=== PATIENT | female | born 1985 | race Caucasian/White ===

== ENCOUNTER 2017-08-14 23:30 | Emergency (ER) | payer OTHER ==
[2013-08-16 09:55] VITALS: Wt 100.7 kg
[~2017-08-14 23:30] MED LIST: ACE3 PO; ALP5 PO; CLON-388 PO; DICY20TA70 PO; DIPH-1 PO; ESCI20TA38 PO; FAMO20TA28 PO; FLUT16SP20 NS; GOLYTE PO; IBU800 PO; IRON1TAB55 PO; Ibuprofen PO; KET10 PO; LOR10 PO; MON10 PO; NAPR500T75 PO; NORE0.3517 PO; OXYC1TAB54 PO; PER PO; PRO25 PO; TRAM-627 PO; TRAM100T22 PO
--- NOTE | 2017-08-14 23:37 | ER Report ---
History and Physical Time Seen By MD: 23:36 HPI/ROS CHIEF COMPLAINT: Cat bite, right index finger HISTORY OF PRESENT ILLNESS: 32-year-old female presents ambulatory the ER complaining of 9/10 throbbing pain in her right index finger. Patient used to live trapped to catch a feral cat in her garage. She was using a leather glove trying to extricate From the cage and release it, when it bit into her finger through the glove. Patient has puncture wounds on both sides of her right index finger. Patient reports her last tetanus shot was 2011. Patient's concerned about rabies exposure. REVIEW OF SYSTEMS: Respiratory: No cough, no dyspnea. Cardiovascular: No chest pain, no palpitations. Gastrointestinal: No vomiting, no abdominal pain. Musculoskeletal: As above Allergies: Coded Allergies: grass pollen-sweet vernal, standardized (Verified Allergy, Mild, STUFFY NOSE, 08/14/17) nut - unspecified (Verified Allergy, Unknown, 08/14/17) Uncoded Allergies: UNKNOWN ANTIBIOTICS X 2 (Allergy, Intermediate, 1 CAUSED N/V. 1 CAUSED HIVES, 06/18/09) MOLD (Allergy, Mild, STUFFY NOSE, 08/29/11) Home Meds Active Scripts Hydrocodone Bit/Acetaminophen (NORCO 5-325 TABLET) 1 Each Tablet, 1 EACH PO Q4H Y for PAIN, #8 TAB Prov:REJI ANGEL DO 08/15/17 Amoxicillin/Pot Clav 875-125 Mg Tab (AUGMENTIN 875-125 TABLET) 1 Each Tablet, 1 TAB PO Q12H for infection, #14 TAB TAKE ONE TABLET BY MOUTH EVERY 12 HOURS Prov:REJI ANGEL DO 08/15/17 Dicyclomine Hcl (DICYCLOMINE HCL) 20 Mg Tablet, 1 TAB PO QID Y for CRAMPING, # 30 TAB 3 Refills Prov:UNIQUE TORRES MD 05/23/17 Diphenoxylate Hcl/Atropine (LOMOTIL TABLET) 1 Each Tablet, 1 TAB PO TID Y for DIARRHEA, #45 TAB 0 Refills Prov:UNIQUE TORRES MD 02/22/17 Reported Medications Hydroxyzine Hcl (HYDROXYZINE HCL) 25 Mg Tablet, 25 MG PO 08/14/17 Bupropion Hcl (WELLBUTRIN SR) 150 Mg Tablet.er, 150 MG PO QDAY, TAB 08/14/17 Famotidine (PEPCID) 20 Mg Tablet, 20 MG PO BID, #10 TAB 01/18/17 Clonazepam (CLONAZEPAM) 0.5 Mg Tab.rapdis, 0.5 MG PO QDAY Y for prn, #6 TAB 01/04/17 Escitalopram Oxalate (LEXAPRO) 20 Mg Tablet, 20 MG PO QDAY, TAB 01/04/17 Reviewed Nurses Notes: Yes Old Medical Records Reviewed: Yes Hx Smoking: Yes Smoking Status: Former Smoker Exposure to Second Hand Smoke?: No Hx Substance Use Disorder: No Hx Alcohol Use: No Constitutional Vital Sign - Last 24 Hours 08/14/17 08/14/17 08/15/17 08/15/17 23:36 23:45 00:00 00:15 Temp 98.2 Pulse 96 94 ??? 84 Resp 18 B/P (MAP) 146/87 129/77 (94) Pulse Ox 97 94 91 95 O2 Delivery Room Air 08/15/17 08/15/17 08/15/17 08/15/17 00:20 00:30 00:50 00:56 Pulse 87 86 80 B/P (MAP) 122/73 (89) Pulse Ox 99 94 08/15/17 01:01 Pulse 81 Pulse Ox 98 Physical Exam General appearance: Respiratory: Chest is non tender, lungs are clear to auscultation. Cardiac: Regular rate and rhythm Right index finger with puncture wounds bilaterally. There is significant soft tissue swelling and tenderness of the distal tuft. DIFFERENTIAL DIAGNOSIS: After history and physical exam differential diagnosis was considered for puncture wounds, animal bite, crush injury, osteomyelitis, joint penetration, Medical Decision Making EKG/Imaging Imaging X-ray: Right index finger, 3 views was obtained. I viewed the images myself on the PACS system. My interpretation of the images is: No fracture no dislocation , no bony injury. The radiologist interpretation had no clinically significant variation from this interpretation. ED Course/Re-evaluation ED Course Patient was admitted to an examination room. H&P was done. The differential diagnoses was considered. Patient with a cat bite. She'll be treated with Augmentin, ibuprofen and Severance for pain relief. Patient has been Detained at home. Animal control was contacted and will be checked for rabies. Poison control was contacted for consideration of whether to treat for rabies prophylactically. The animal picked up by [employer] tomorrow and taken to a filler shredder machine for evaluation of rabies. Patient reports the cat is been behaving normally, has no signs of aggressiveness. The cat is been around for several weeks. Lives in her garage. Patient be discharged on Augmentin and a limited supply of Severance for temporary pain relief. Patient's advised hot soaks and ibuprofen 600 mg 3 times a day. Decision to Disposition Date: Aug 15, 2017 Decision to Disposition Time: 00:22 Depart Departure Latest Vital Signs Vital Signs Date Time Temp Pulse Resp B/P (MAP) Pulse Ox O2 Delivery O2 Flow Rate FiO2 08/15/17 01:01 81 98 08/15/17 00:30 122/73 (89) 08/14/17 23:36 98.2 18 Room Air Impression: Primary Impression: Cat bite of index finger Condition: Improved Disposition: HOME OR SELF-CARE Referrals: ESTHER VO PA-C (PCP) New Scripts Hydrocodone Bit/Acetaminophen (NORCO 5-325 TABLET) 1 Each Tablet 1 EACH PO Q4H Y for PAIN, #8 TAB Prov: REJI ANGEL DO 08/15/17 Amoxicillin/Pot Clav 875-125 Mg Tab (AUGMENTIN 875-125 TABLET) 1 Each Tablet 1 TAB PO Q12H for infection, #14 TAB TAKE ONE TABLET BY MOUTH EVERY 12 HOURS Prov: REJI ANGEL DO 08/15/17 Patient Instructions: Animal Bite (ED) Additional Instructions: Take ibuprofen 200 mg 3-4 tablets 3 times a day with food Perform warm soaks of your index finger Follow-up with primary care if unimproved in 3-5 days. Problem Qualifiers Primary Impression: Cat bite of index finger Encounter type: initial encounter Qualified Codes: S61.258A - Open bite of other finger without damage to nail, initial encounter; W55.01XA - Bitten by cat , initial encounter REJI ANGEL DO Aug 14, 2017 23:37
[2017-08-14] MEDS ORDERED: AMOX/CLAV 875 MG TAB PO ONE (23:45)
[2017-08-14] MEDS ORDERED: APAP/HYDROCODONE 325/5 TAB PO ONE (23:45)
[2017-08-14] MEDS ORDERED: IBUPROFEN 600 MG TAB PO ONE (23:45)
[2017-08-14] MEDS ORDERED: BUPR-126 PO (23:46)
[2017-08-14] MEDS ORDERED: HYDR-4225 PO (23:46)
--- NOTE | 2017-08-15 00:24 | RADIOLOGY IMAGING REPORT ---
FACILITY: [facility] - [place] PATIENT NAME: Kelsey Mandujano : 1985 MR: [id number] V: [id number] EXAM DATE: ORDERING PHYSICIAN: REJI ANGEL TECHNOLOGIST: Location: [facility] - [place] Patient: Kelsey Mandujano : 1985 Visit/Account:[id number] Date of Sevice: 08/14/2017 INDICATION: Cat-bite. EXAM DATE: 08/14/2017 11:44 PM COMPARISON: None. FINDINGS: PA view of the right hand with oblique and lateral views of the index finger.. Mineralization is norm al. No acute alignment abnormality or fracture. Soft tissues are unremarkable. IMPRESSION: Normal right index finger. Report Dictated By: Wai Brown MD at 08/15/2017 12:19 AM Report E-Signed By: Wai Brown MD at 08/15/2017 12:21 AM [id number]
[2017-08-15] MEDS ORDERED: AMOX-559 PO (00:27)
[2017-08-15] MEDS ORDERED: HYDR-4309 PO (00:27)
[2017-08-15 00:30] VITALS: BP 122/73
[2017-08-15] MEDS ORDERED: ACET/HYDROC 5/325MG TH ER ONLY 2 TAB/BOTTLE PO ONE (00:30)
== END 2017-08-15 01:03 | disposition home or self-care (01) ==
LOC: ER 23:45
DX: S61.230A Puncture wound without foreign body of right index finger without damage to nail, initial encounter (principal)
CPT/HCPCS: 99283